=== PATIENT | female | born 1960 | race Caucasian/White ===

== ENCOUNTER 2018-04-21 17:32 | Emergency (ER) | payer OTHER, MEDICAID ==
[~2018-04-21] VITALS: Ht 162.6 cm; Wt 77.1 kg
[2018-04-21 17:40] VITALS: Ht 162.6 cm; Wt 77.1 kg
[2018-04-21 18:55] LABS: BASOPHIL % 0.3 % (0-2); PLATELET COUNT 212 x10^3mcL (130-400)
[2018-04-21 18:56] LABS: RED CELL DISTRIBUTION WIDTH 15.8 % (11.5-14.5)
[2018-04-21 19:05] LABS: CALCIUM 9.5 mg/dL (8.5-10.1); CARBON DIOXIDE 32.9 mmol/L (21-32)
[2018-04-21 19:06] LABS: CREATININE SERUM 4.4 mg/dL (0.6-1.0)
[2018-04-21 19:24] VITALS: BP 119/57
== END 2018-04-21 19:24 | disposition home or self-care (01) ==
LOC: ED 17:32
PROVIDERS: Emergency Medicine
DX: R51 Headache (principal); I10 Essential (primary) hypertension; E11.9 Type 2 diabetes mellitus without complications; Z99.2 Dependence on renal dialysis
CPT/HCPCS: J1885; J2765; Q0163